=== PATIENT | male | born 1950 | race Caucasian/White ===

== ENCOUNTER 2017-07-11 00:25 | Emergency (ER) | payer OTHER, SELFPAY | END 2017-07-11 04:39 | disposition home or self-care (01) | PROVIDERS: Emergency Provider Emergency Medicine; Visit Provider Emergency Medicine | DX: I48.91 Unspecified atrial fibrillation (principal) | CPT/HCPCS: 71010; 71045; 80053; 82550; 82553; 83690; 84484; 85025; 85610; 85730; 92960; 93005; 93010; 96374; 96375; 99058; 99285; J2250; J3010 ==